=== PATIENT | female | born 1945 | race Caucasian/White ===

== ENCOUNTER → 2017-03-22 | Outpatient (CLI) | payer MEDICARE ==
[~2017-03-22] MED LIST: ACTO5TAB PO; ADVA250A INH; ASPI81CH CHEW; ATEN100T PO; BUPR150CR PO; CITA10TA4 PO; COLA750C2 PO; FLUT1INH INH; HYDR-3516 PO; NAPR550 PO; PERC10TA27 PO; PRIL20TA2 PO
[2017-03-22 12:36] LABS: AUTOMATED NEUTROPHIL # 5.1 TH/MM3 (1.8-7.7); BASOPHIL % 0.3 % (0.0-2.0); EOSINOPHIL # 0.1 TH/MM3 (0-0.4); EOSINOPHIL % 1.3 % (0.0-4.0); HEMATOCRIT 35.5 % (35.0-46.0); HEMO FLAGS DIFF FINAL; LYMPH % 35.1 % (9.0-44.0); LYMPHOCYTE # 3.3 TH/MM3 (1.0-4.8); MEAN CELL VOLUME 87.1 FL (80.0-100.0); MEAN CORPUSCULAR HEMOGLOBIN 28.1 PG (27.0-34.0); MEAN CORPUSCULAR HGB CONC 32.3 % (32.0-36.0); MONO % 8.1 % (0.0-8.0); NEUT % 55.2 % (16.0-70.0); PLATELET COUNT 264 TH/MM3 (150-450); RED BLOOD COUNT 4.08 MIL/MM3 (4.00-5.30); RED CELL DISTRIBUTION WIDTH 16.1 % (11.6-17.2); WHITE BLOOD COUNT 9.3 TH/MM3 (4.0-11.0)
[2017-03-22 12:41] LABS: BACTERIA, URINE RARE /hpf; BLOOD, URINE NEG (NEG); COMMENT (UR) CULT NOT INDICATED; CULTURE IF INDICATED CULT NOT INDICATED; GLUCOSE,URINE NEG (NEG); KETONE, URINE NEG (NEG); NITRITE,URINE NEG (NEG); SQUAMOUS EPITHELIAL CELL URINE <1 /hpf (0-5); URINE COLOR YELLOW (YELLW/STRAW)
[2017-03-22 12:44] LABS: APTT (PATIENT) 27.8 SEC (24.3-30.1); PROTHROMBIN TIME - PATIENT 11.2 SEC (9.8-11.6)
[2017-03-22 13:02] LABS: ANION GAP 5 MEQ/L (5-15); AST (GOT) 22 U/L (15-37); BICARBONATE 28.6 MEQ/L (21.0-32.0); BLOOD UREA NITROGEN 16 MG/DL (7-18); CHLORIDE 105 MEQ/L (98-107); GLOMERULAR FILTRATION RATE 56 ML/MIN (>89); GLUCOSE,FASTING 88 MG/DL (74-99); POTASSIUM 4.3 MEQ/L (3.5-5.1); SODIUM (NA) 139 MEQ/L (136-145)
[2017-03-22 13:03] LABS: ALT (GPT) 22 U/L (10-53)
[2017-03-22 13:05] LABS: ALKALINE PHOSPHATASE 119 U/L (45-117); TOTAL BILIRUBIN ADULT 0.3 MG/DL (0.2-1.0)
--- NOTE | 2017-03-22 13:09 | RADRPT ---
EXAM DATE/TIME: 03/22/2017 12:42 [place] COMPARISON: No previous studies available for comparison. INDICATIONS : Evaluate for Pneumonia, Pneumothorax, and Communicable Diseases. Pre-op Colectomy. MEDICAL HISTORY : Ulcerative colitis. SURGICAL HISTORY : Rotator cuff. ENCOUNTER: Initial ACUITY: 1 day PAIN SCORE: 0/10 LOCATION: Bilateral chest FINDINGS: PA and lateral views of the chest demonstrate the lungs to be symmetrically aerated without evidence of mass, infiltrate or effusion. The cardiomediastinal contours are unremarkable. Osseous structure s are intact. CONCLUSION: No acute cardiopulmonary disease. Rl Garcia MD on March 22, 2017 at 13:07 Board Certified Radiologist. This report was verified electronically.
--- NOTE | 2017-03-23 05:19 | EKG ---
Date Performed: 03/22/2017 Time Performed: 11:54:02 PTAGE: 71 years EKG: Sinus rhythm WITH FREQUENT ECTOPIC PREMATURE COMPLEXES SEPTAL MYOCARDIAL INFARCTION, PROBABLY OLD ABNORMAL ECG NO PREVIOUS TRACING DOCTOR: Xavier Booth Interpretating Date/Time 03/23/2017 05:14:17
== END ==
LOC: CPRE 11:27
PROVIDERS: ATTEND Colon & Rectal Surgery
DX: Z01.810 Encounter for preprocedural cardiovascular examination (principal); Z01.812 Encounter for preprocedural laboratory examination; K51.00 Ulcerative (chronic) pancolitis without complications; R94.31 Abnormal electrocardiogram [ECG] [EKG]
CPT/HCPCS: 36415; 71020; 80053; 81001; 85025; 85610; 85730; 93005

== ENCOUNTER 2017-03-29 06:25 | Inpatient (IN) | payer MEDICARE ==
[~2017-03-29] VITALS: Ht 166.6 cm; Wt 75.0 kg
[~2017-03-29 06:25] MED LIST changes: -HYDR-3516 PO
[2017-03-29] MEDS ORDERED: LACTATED RINGER'S 1000 ML IV PRN (06:45)
[2017-03-29] MEDS ORDERED: POVIDONE IODINE 5% (ANTISEPSIS KIT) 4 APPLICATIONS EACH NARE PRN (06:45)
[2017-03-29] MEDS ORDERED: METRONIDAZOLE 500 MG/100 ML ISONTONIC SOLN IV PRN (06:45)
[2017-03-29] MEDS ORDERED: DEXT 5%-NACL 0.9% 1000 ML INJ 1,000 ML IV SCH (06:45)
[2017-03-29] MEDS ORDERED: CHLORHEXIDINE GLUCONATE 2 % 1 PACK (2 CLOTHS) TOPICAL PRN (06:45)
[2017-03-29] MEDS ORDERED: SODIUM CHLORID 0.9% 500 ML IV PRN (06:45)
[2017-03-29] MEDS ORDERED: INSULIN HUMAN REGULAR 1,000 UNITS/10 ML VIAL SQ PRN (06:45)
[2017-03-29] MEDS ORDERED: METOPROLOL TARTRATE 25 MG TAB PO PRN (06:45)
[2017-03-29] MEDS ORDERED: FAMOTIDINE 20 MG/2 ML VIAL ONE (07:10)
[2017-03-29] MEDS ORDERED: ACETAMINOPHEN 1000 MG/100 ML 100 ML IV ONE (07:10)
[2017-03-29] MEDS ORDERED: SUGAMMADEX SODIUM 200 MG/2 ML VIAL IV PUSH ONE ×4 (08:14→16:32)
[2017-03-29] MEDS ORDERED: HYDROmorphone HCL PF 2 MG/ML VIAL ONE (09:18)
--- NOTE | 2017-03-29 09:38 | PD.OP ---
Operative Report Date of Surgery: Mar 29, 2017 Preoperative Diagnosis: Ulcerative colitis Postoperative Diagnosis: Same Procedure: Cystoscopy with bilateral ureteral catheter placement Anesthesia: SAMIA Surgeon: Trent Shine Timing Inspector(s): None Resident Surgeon: None Operation and Findings: 8 year-old female history of ulcerative colitis selected undergo robotic colectomy by Dr. Rodriguez today. Request for made for bilateral ureteral catheter placement. Patient was placed in dorsal lithotomy position and prepped and draped in usual sterile fashion. She received preprocedure antibiotics and general endotracheal tube anesthesia was administered. 22 [place] cystoscopy was inserted in the bladder dobbins cystoscopy did not reveal any abnormalities. 5 [place] open-ended ureteral catheter was placed on the left side without difficulty and then this was repeated on the right side without difficulty. A 16 [place] Natarajan catheter was then inserted she tolerated the procedure well. Trent Shine DO Mar 29, 2017 09:38
[2017-03-29] MEDS: ceFAZolin 2 GM PREMIX 50 ML IV SCH ×3 (11:37→11:41)
[2017-03-29] MEDS ORDERED: SODIUM CHLORID 0.9% 500 ML INJ 500 ML IV ONE (12:00)
[2017-03-29] MEDS ORDERED: ROCURONIUM INJ 50 MG/5 ML VIAL IV ONE (12:00)
[2017-03-29] MEDS ORDERED: KETOROLAC TROMETHAMINE 30 MG/ML (IVP) VIAL IV PUSH ONE (12:00)
[2017-03-29] MEDS ORDERED: DEXAMETHASONE SOD PHOS 4 MG/ML VIAL IV ONE (12:00)
[2017-03-29] MEDS ORDERED: ePHEDrine/NS 25 MG/5 ML SYR IV ONE (12:00)
[2017-03-29] MEDS ORDERED: MIDAZOLAM HCL 2 MG/2 ML VIAL IV ONE (12:00)
[2017-03-29] MEDS ORDERED: VECURONIUM BROMIDE 20 MG VIAL IV ONE (12:00)
[2017-03-29] MEDS ORDERED: LIDOCAINE HCL 1% PF 5 ML AMPULE OTHER ONE (12:00)
[2017-03-29] MEDS ORDERED: LABETALOL HCL 100 MG/20 ML VIAL IV ONE (12:00)
[2017-03-29] MEDS ORDERED: PROPOFOL 200 MG/20 ML AMP IV ONE (12:00)
[2017-03-29] MEDS ORDERED: NORMOSOL R INJ 1,000 ML IV ONE (12:00)
[2017-03-29] MEDS ORDERED: ONDANSETRON HCL 4 MG/2 ML VIAL IV PUSH ONE (12:00)
[2017-03-29] MEDS ORDERED: PHENYLEPH/NS 1000 MCG/10 ML SYR IV ONE (12:00)
[2017-03-29 13:09] LABS: BLOOD GAS BASE EXCESS -1.2 mmol/L (-2-2); BLOOD GAS CARBOXYHEMOGLOBIN 0.3 % (0-4); BLOOD GAS HCO3 26 mmol/L (22-26); BLOOD GAS O2 HGB SATURATION 97 % (90-100); BLOOD GAS OXYGEN CONTENT 14.8 Vol % (12.0-20.0); BLOOD GAS PCO2 65 mmHg (38-42); BLOOD GAS PO2 275 mmHg (61-120); BLOOD GAS TOTAL HGB 10.5 G/DL (12.0-16.0); TEMP CORR TO 98.6
[2017-03-29 13:10] LABS: CRITICAL VALUE YES; FIO2 50 %; OXYGEN DEVICE OR; STAT YES; ULNAR PULSE OR; VENT SETTINGS OR
[2017-03-29] MEDS ORDERED: ceFAZolin INJ 1,000 MG VIAL ONE (13:48)
[2017-03-29 14:39] LABS: BLOOD GAS BASE EXCESS -3.2 mmol/L (-2-2); BLOOD GAS CARBOXYHEMOGLOBIN 0.3 % (0-4); BLOOD GAS HCO3 23 mmol/L (22-26); BLOOD GAS METHEMOGLOBIN 1.1 % (0-2); BLOOD GAS O2 HGB SATURATION 96 % (90-100); BLOOD GAS OXYGEN CONTENT 15.7 Vol % (12.0-20.0); BLOOD GAS PCO2 56 mmHg (38-42); BLOOD GAS PO2 257 mmHg (61-120); BLOOD GAS TOTAL HGB 11.1 G/DL (12.0-16.0); TEMP CORR TO 98.6
[2017-03-29 14:40] LABS: CRITICAL VALUE YES; DRAW SITE ART LINE; OXYGEN DEVICE SEE OR; STAT YES
[2017-03-29] MEDS: D5-NS + KCL 20 MEQ INJ 1,000 ML IV SCH ×2 (16:43→23:39)
[2017-03-29] MEDS ORDERED: diphenhydrAMINE HCL 50 MG/ML VIAL IV PUSH PRN (16:45)
[2017-03-29] MEDS ORDERED: POTASSIUM CHLOR 20 MEQ PREMIX 100 ML IV PRN (16:45)
[2017-03-29] MEDS ORDERED: SODIUM CHLORIDE 0.9% FLUSH 5 ML FLUSH IVF PRN (16:45)
[2017-03-29] MEDS ORDERED: ACETAMINOPHEN 325 MG TAB PO PRN (16:45)
[2017-03-29] MEDS ORDERED: NALOXONE HCL 0.4 MG/ML AMP IV PUSH PRN (16:45)
[2017-03-29] MEDS ORDERED: POTASSIUM CHLOR 40 MEQ PREMIX 100 ML IV PRN (16:45)
[2017-03-29] MEDS ORDERED: ENALAPRILAT 2.5 MG/2 ML VIAL IV PUSH PRN (16:45)
[2017-03-29] MEDS ORDERED: BENZOCAINE 6 MG/MENTHOL 10 MG LOZENGE BUCCAL PRN (16:45)
[2017-03-29] MEDS ORDERED: ENALAPRILAT 1.25 MG/ML VIAL IV PUSH PRN (16:45)
[2017-03-29] MEDS ORDERED: ACETAMINOPHEN/HYDROcodone 325 MG/5 MG TAB PO PRN (16:45)
[2017-03-29] MEDS ORDERED: Post-op Orders (for Pharmacy) MISC XX ONE (16:45)
[2017-03-29] MEDS ORDERED: *RESP: ALBUTEROL 2.5 MG/3 ML NEB (PRN) PERIprocedural Use ONLY NEB ONE (17:00)
[2017-03-29] MEDS ORDERED: DO NOT ADM ANY ANTICOAGULANT DRUGS PRN (17:04)
[2017-03-29 17:40] LABS: AUTOMATED NEUTROPHIL # 14.4 TH/MM3 (1.8-7.7); BASOPHIL % 0.2 % (0.0-2.0); HEMATOCRIT 33.9 % (35.0-46.0); HEMO FLAGS DIFF FINAL; LYMPH % 4.1 % (9.0-44.0); LYMPHOCYTE # 0.7 TH/MM3 (1.0-4.8); MEAN CELL VOLUME 87.7 FL (80.0-100.0); MONO % 5.4 % (0.0-8.0); NEUT % 90.3 % (16.0-70.0); PLATELET COUNT 217 TH/MM3 (150-450); RED BLOOD COUNT 3.87 MIL/MM3 (4.00-5.30); RED CELL DISTRIBUTION WIDTH 15.9 % (11.6-17.2); WHITE BLOOD COUNT 15.9 TH/MM3 (4.0-11.0)
[2017-03-29 17:55] LABS: BICARBONATE 26.3 MEQ/L (21.0-32.0)
[2017-03-29] MEDS: MORPHINE SULFATE 30 MG/30 ML PCA IV SCH (17:56)
[2017-03-29] MEDS: metroNIDAZOLE 500 MG INJ 100 ML IV SCH (18:00)
[2017-03-29] MEDS: KETOROLAC TROMETHAMINE 30 MG/ML (IVP) VIAL IVP SCH ×2 (18:30→23:40)
[2017-03-29] MEDS ORDERED: *morphine SULFATE 8 MG/ML PERIprocedure ONLY ONE (19:17)
[2017-03-29 19:50] VITALS: BP 137/64; PULSE 76; RESP 16; TEMP 98.3; O2SAT 100
[2017-03-29 20:23] VITALS: PULSE 73
[2017-03-29 21:00] VITALS: PULSE 70
[2017-03-29] MEDS: SODIUM CHLORIDE 0.9% FLUSH 5 ML FLUSH IVF SCH (21:00)
[2017-03-29] MEDS: PCA - TOTAL MG MORPHINE DELIVERED PER SHIFT SCH (21:55)
[2017-03-29 22:00] VITALS: PULSE 74
[2017-03-29 23:00] VITALS: PULSE 69
[2017-03-29 23:20] VITALS: BP 110/55; PULSE 69; RESP 16; TEMP 97.8; O2SAT 100
[2017-03-30] VITALS (19 sets, daily range): BP systolic 106–119; BP diastolic 53–59; PULSE 68–99; RESP 16–20; TEMP 97.5–99.1; O2SAT 93–100
[2017-03-30] MEDS: metroNIDAZOLE 500 MG INJ 100 ML IV SCH ×2 (01:55→10:00)
[2017-03-30 04:49] LABS: AUTOMATED NEUTROPHIL # 10.8 TH/MM3 (1.8-7.7); BASOPHIL % 0.1 % (0.0-2.0); EOSINOPHIL % 0.1 % (0.0-4.0); HEMATOCRIT 31.3 % (35.0-46.0); HEMO FLAGS DIFF FINAL; LYMPH % 12.6 % (9.0-44.0); LYMPHOCYTE # 1.7 TH/MM3 (1.0-4.8); MEAN CELL VOLUME 88.9 FL (80.0-100.0); MEAN CORPUSCULAR HEMOGLOBIN 28.3 PG (27.0-34.0); MEAN CORPUSCULAR HGB CONC 31.9 % (32.0-36.0); MONO % 9.2 % (0.0-8.0); PLATELET COUNT 214 TH/MM3 (150-450); RED BLOOD COUNT 3.53 MIL/MM3 (4.00-5.30); RED CELL DISTRIBUTION WIDTH 16.1 % (11.6-17.2); WHITE BLOOD COUNT 13.8 TH/MM3 (4.0-11.0)
[2017-03-30 05:25] LABS: BICARBONATE 25.3 MEQ/L (21.0-32.0); POTASSIUM 4.4 MEQ/L (3.5-5.1)
[2017-03-30] MEDS: PCA - TOTAL MG MORPHINE DELIVERED PER SHIFT SCH ×3 (05:46→21:19)
[2017-03-30] MEDS: D5-NS + KCL 20 MEQ INJ 1,000 ML IV SCH ×3 (05:50→21:20)
[2017-03-30] MEDS: KETOROLAC TROMETHAMINE 30 MG/ML (IVP) VIAL IVP SCH ×3 (06:00→18:17)
[2017-03-30] MEDS ORDERED: SODIUM CHLOR 0.9% 1000 ML INJ 1,000 ML IV SCH (06:15)
[2017-03-30] MEDS ORDERED: D5-NS + KCL 20 MEQ INJ 1,000 ML IV SCH ×2 (06:30)
[2017-03-30] MEDS: FUROSEMIDE 20 MG/2 ML VIAL IV PUSH SCH ×2 (08:13→18:17)
[2017-03-30] MEDS: PANTOPRAZOLE SODIUM 40 MG VIAL IVP SCH (08:13)
[2017-03-30] MEDS: SODIUM CHLORIDE 0.9% FLUSH 5 ML FLUSH IVF SCH ×2 (08:14→21:00)
[2017-03-30] MEDS: HEPARIN SODIUM - SQ 10,000 UNITS/ML VIAL SQ SCH (16:24)
[2017-03-30] MEDS: ONDANSETRON HCL 4 MG/2 ML VIAL IV PUSH PRN (18:26)
[2017-03-31] VITALS (7 sets, daily range): BP systolic 108–148; BP diastolic 55–98; PULSE 89–105; RESP 16–20; TEMP 97.4–100.2; O2SAT 90–96
[2017-03-31] MEDS: KETOROLAC TROMETHAMINE 30 MG/ML (IVP) VIAL IVP SCH ×4 (01:13→17:32)
[2017-03-31] MEDS: HEPARIN SODIUM - SQ 10,000 UNITS/ML VIAL SQ SCH ×2 (03:58→16:04)
[2017-03-31] MEDS: D5-NS + KCL 20 MEQ INJ 1,000 ML IV SCH ×3 (03:59→12:31)
[2017-03-31] MEDS: PCA - TOTAL MG MORPHINE DELIVERED PER SHIFT SCH ×3 (06:00→22:00)
[2017-03-31] MEDS: FUROSEMIDE 20 MG/2 ML VIAL IV PUSH SCH ×2 (06:13→17:31)
[2017-03-31 06:57] LABS: AUTOMATED NEUTROPHIL # 10.3 TH/MM3 (1.8-7.7); BASOPHIL % 0.2 % (0.0-2.0); EOSINOPHIL # 0.1 TH/MM3 (0-0.4); EOSINOPHIL % 0.9 % (0.0-4.0); HEMATOCRIT 25.9 % (35.0-46.0); HEMO FLAGS DIFF FINAL; MEAN CELL VOLUME 88.7 FL (80.0-100.0); MEAN CORPUSCULAR HEMOGLOBIN 28.8 PG (27.0-34.0); MEAN CORPUSCULAR HGB CONC 32.5 % (32.0-36.0); MONO % 8.2 % (0.0-8.0); NEUT % 75.7 % (16.0-70.0); PLATELET COUNT 162 TH/MM3 (150-450); RED BLOOD COUNT 2.93 MIL/MM3 (4.00-5.30); RED CELL DISTRIBUTION WIDTH 16.2 % (11.6-17.2); WHITE BLOOD COUNT 13.6 TH/MM3 (4.0-11.0)
[2017-03-31 07:28] LABS: BICARBONATE 21.8 MEQ/L (21.0-32.0)
[2017-03-31] MEDS: SODIUM CHLORIDE 0.9% FLUSH 5 ML FLUSH IVF SCH ×2 (09:00→21:00)
[2017-03-31] MEDS: PANTOPRAZOLE SODIUM 40 MG VIAL IVP SCH (09:09)
[2017-03-31] MEDS: MORPHINE SULFATE 30 MG/30 ML PCA IV SCH (13:40)
[2017-03-31] MEDS: ONDANSETRON HCL 4 MG/2 ML VIAL IV PUSH PRN (15:56)
[2017-04-01] MEDS: KETOROLAC TROMETHAMINE 30 MG/ML (IVP) VIAL IVP SCH ×3 (00:28→13:07)
[2017-04-01] MEDS: D5-NS + KCL 20 MEQ INJ 1,000 ML IV SCH ×2 (00:29→13:07)
[2017-04-01 01:10] VITALS: BP 123/61; PULSE 89; RESP 16; TEMP 98.3; O2SAT 97
[2017-04-01] MEDS: HEPARIN SODIUM - SQ 10,000 UNITS/ML VIAL SQ SCH ×2 (03:05→17:13)
[2017-04-01 04:44] VITALS: BP 118/61; PULSE 91; RESP 16; TEMP 97.1; O2SAT 99
[2017-04-01] MEDS: FUROSEMIDE 20 MG/2 ML VIAL IV PUSH SCH ×2 (05:14→17:14)
[2017-04-01] MEDS: PCA - TOTAL MG MORPHINE DELIVERED PER SHIFT SCH ×2 (06:00→14:00)
[2017-04-01 07:46] LABS: AUTOMATED NEUTROPHIL # 8.6 TH/MM3 (1.8-7.7); BASOPHIL % 0.2 % (0.0-2.0); EOSINOPHIL # 0.3 TH/MM3 (0-0.4); EOSINOPHIL % 2.3 % (0.0-4.0); HEMATOCRIT 27.6 % (35.0-46.0); HEMO FLAGS DIFF FINAL; LYMPH % 14.6 % (9.0-44.0); LYMPHOCYTE # 1.7 TH/MM3 (1.0-4.8); MEAN CELL VOLUME 88.2 FL (80.0-100.0); MEAN CORPUSCULAR HEMOGLOBIN 28.3 PG (27.0-34.0); MEAN CORPUSCULAR HGB CONC 32.1 % (32.0-36.0); MONO % 8.3 % (0.0-8.0); NEUT % 74.6 % (16.0-70.0); PLATELET COUNT 189 TH/MM3 (150-450); RED BLOOD COUNT 3.13 MIL/MM3 (4.00-5.30); RED CELL DISTRIBUTION WIDTH 16.2 % (11.6-17.2); WHITE BLOOD COUNT 11.5 TH/MM3 (4.0-11.0)
[2017-04-01 08:00] VITALS: BP 157/63; PULSE 82; RESP 19; TEMP 96.9; O2SAT 99
[2017-04-01 08:06] LABS: BICARBONATE 25.5 MEQ/L (21.0-32.0); POTASSIUM 3.8 MEQ/L (3.5-5.1)
[2017-04-01] MEDS: SODIUM CHLORIDE 0.9% FLUSH 5 ML FLUSH IVF SCH ×2 (09:00→21:00)
[2017-04-01] MEDS: PANTOPRAZOLE SODIUM 40 MG VIAL IVP SCH (09:01)
[2017-04-01 12:00] VITALS: BP 144/66; PULSE 88; RESP 19; TEMP 98.7; O2SAT 95
--- NOTE | 2017-04-01 12:34 | MP ---
cc: YULIA RODRIGUEZ M.D., LAURA A. MD DATE OF SURGERY 03/29/17 PREOPERATIVE DIAGNOSIS 1. Chronic ulcerative colitis. 2. Hepatic flexure polyp with dysplasia. POSTOPERATIVE DIAGNOSIS 1. Chronic ulcerative colitis. 2. Hepatic flexure polyp with dysplasia. PROCEDURE Robotic total proctocolectomy with ileoanal pouch and diverting ileostomy SURGEON Dilma Rodriguez MD REBAR BENDER Tyson ANESTHESIA General per ET tube. ESTIMATED BLOOD LOSS 100 mL OPERATIVE INDICATIONS The patient is a 71-year-old female with a 20-year history of chronic ulcerative colitis and recent biopsy of a hepatic flexure polyp with dysplasia. OPERATIVE FINDINGS The colon showed no signs of acute inflammation but did have multiple signs of chronic inflammation including stove piping and thickening of the muscular wall throughout. The small bowel was healthy and normal and the liver and gallbladder were visibly and palpably normal. The uterus and left ovary were normal. The right ovary had a benign cyst but was otherwise unremarkable. PROCEDURE IN DETAIL The patient was brought to the operating room and placed in the supine position. After induction of general anesthesia, the patient was placed in Les stirrups and all bony prominences were carefully padded. The skin of the anterior abdominal wall as well as the perineum was then prepped and draped in the usual sterile fashion. Dr. Shine then came in and performed cystoscopy with placement of bilateral ureteral catheters. Please see his operative note for details. A site was then chosen for the camera being located just to the right and above the umbilicus. A 10-12 trocar was placed at this location under direct vision using the laparoscope. CO2 insufflation was then undertaken and nothing was noted that would preclude the robotic approach. The ports were then placed as follows. There was a 10-12 trocar placed just inside the right anterior superior iliac spine. We did place this a little more medial and cephalad in order to be able to use it on our right side as well our left dissection. A #5 assist port was placed in the right costal margin equal distance to the camera and the #1 port. The #3 port a long DaVinci was placed on the umbilical line and left anterior axillary line and the #2 port which was a short DaVinci was placed in the left mid clavicular line midway between the costal margin and the umbilical line. The patient was hydroplaned with head down and slightly to the right and the small bowel was brought up and out of the pelvis and to the right. The robot was then docked. The sigmoid colon was retracted down and to the left and the peritoneum on the right was scored. A dissection through this plane until the left ureter was clearly identified and swept away from the specimen. Dissection then continued posteriorly down to the level of the mid rectum. The lateral dissection was then continued around the right side. The lateral pelvic attachments in the sigmoid colon were then dissected free down to the level until our previous dissection was met. This dissection continued in the left gutter freeing the lateral side of the rectum. Dissection continued circumferentially around the rectum freeing the rectum anteriorly from the posterior vaginal wall and posteriorly down to the level of the pelvic floor. At this point, we elected to proceed with the remainder of the procedure. The descending colon fascia was gently dissected free from the underlying posterior peritoneum and laterally. The lateral attachments of the descending colon were dissected free using electrocautery. The omentum was then pulled away from the distal transverse colon used electrocautery dissection and was carried down into the lesser sac. This dissection was continued up and around the splenic flexure freeing the splenic flexure from its attachments. Eventually, we had full mobility of the distal half of the transverse colon, the descending colon and the sigmoid. The inferior hemorrhoidal vessels were dissected free circumferentially and a white load of the echelon Endo stapler was placed across the vessels at this level. This was closed, fired and removed. Using the vessel sealer, dissection then continued up the descending colon mesentery just inside the bowel and up and around the distal transverse mesentery up to but not including the middle colic vessels. At this point, the robot was undocked and redocked over the right shoulder. Because of the release of the colon, there was quite a bit of difficulty getting good retraction, but eventually we were able to dissect the lateral attachments of the descending colon. The lesser sac was then entered where we had had our previous dissection and continued over to the right until we had some mobility of the proximal transverse colon. A window was made around the middle colic vessels and a white load of the echelon reagent tender helper was placed across these vessels. This was closed for 30 seconds and removed. The remainder of the proximal transverse mesocolon and ascending colon mesocolon were then serially divided using the vessel sealer down to the level of the distal terminal ileum. A site was then chosen for division of the terminal ileum just proximal to the ileocecal valve. The mesentery at this level was divided using the vessel sealer and a blue load echelon endostapler was placed across the bowel at this level. The robot was then undocked. A total of 15 cm vertical incision was made to the pubic symphysis and proceeding intermediate to the umbilicus. Using electrocautery dissection, it was carried down to the fascia of the anterior abdominal wall which was split the length of the skin incision. A wound protector was then placed and the proximal stapled end of the bowel was grasped and pulled out through the incision. After prolapsing all the bowel, I felt that it would easier if we went ahead and stapled off just above the rectum to better visibility of the pelvis. This was accomplished using TX 60 stapling device area was divided and ligated using 0 Vicryl ties. At this point, the small bowel was packed up into the upper part of the abdomen and a contour stapler was placed across the rectum distally about 2 cm proximal to the anorectal ring. This was closed and fired. Because of the extreme tightness of her anal muscle, it was elected to proceed with a 21 EEA stapler. This was advanced through the rectal stump and came up nicely without tension. The bowel had a lot of extraneous tissue that needed to be cleaned. The small bowel was then brought and prolapsed out into the peritoneal cavity. A site was chosen which I felt would come down nicely into the pelvis to the very distal anastomosis without tension. This was approximately 20 cm proximal to the ileocecal valve. A distal 4-5 cm was w then divided and ligated using 0 Vicryl ties and stapled with the blue load. The apex of the pouch was then opened using electrocautery and the LAUREN stapler blue load was placed down one limb of the pouch and this was closed on border, fired and removed. A second load of the stapler was necessary to complete the length of the pouch. A pursestring was then placed around the open end of the pouch and anvil from the 21 EEA stapler was placed into the cut bowel and the previously placed pursestring suture was secured. A simple stay suture was placed in the distal end of the anastomosis after digital at the anus the 21 EEA stapler was advanced up to the rectal stump without difficulty. The spike was advanced just posterior to the staple line. The anvil was into the spike being careful twisted. The stapler was closed, held for 30 seconds, fired and removed thus creating anterior enterotomy and the enterotomy appeared pink and healthy circumferentially and lay without tension in a nice orientation. There was some question that one of the donuts was less than ideal, but a gentle digital exam was performed and the anastomosis was palpably normal and intact circumferentially. The peritoneal cavity was then copiously irrigated with warm normal saline. The fascia of the anterior abdominal wall at the suprapubic incision was closed in a running fashion using #1 PDS. The wound was copiously irrigated with warm normal saline. The skin was closed in a running subcuticular fashion using 3-0 Vicryl. A site was chosen for the stoma in the left lower quadrant and a site was chosen as far distal as possible that would come up nicely to the stoma site was chosen for the ileostomy. A 1.5 cm ellipse of skin was removed sharply and the preperitoneal fat was removed using electrocautery. A 1.5 cm incision in the anterior fascia was performed and the fibers of the rectus abdominis muscle were split. The posterior fascia was incised the length of the anterior incision. The previously planned loop of bowel was brought up and out through the stoma and lay nicely without tension. An Allis was placed through the loop to make sure that it did not mutate. After closure of the abdomen, CO2 insufflation was resumed with no sign of any significant abnormalities. The fascia at the 10-12 trocar was closed in using the crossbow closure device and 0 Vicryl suture and the stoma was matured in typical Ana fashion using 3-0 Vicryl. The remainder of the port sites were closed in an interrupted subcuticular fashion using 3-0 Vicryl. Steri-Strips and sterile dressings were then applied. All sponge, needle and instrument counts were correct. The patient was returned to the Post Anesthesia Care Unit stable. MD DEVORA Santoyo /4:50 PM /12:24 PM
[2017-04-01 16:00] VITALS: BP 166/73; PULSE 94; RESP 19; TEMP 99; O2SAT 96
--- NOTE | 2017-04-01 16:34 | HHI.PR ---
Subjective Remarks POD#3 s/p robotic TPC with IAP, diverting ileostomy Comfortable Objective Vital Signs Date Time Temp Pulse Resp B/P (MAP) Pulse Ox O2 Delivery O2 Flow Rate FiO2 04/01/17 16:00 99.0 94 19 166/73 (104) 96 04/01/17 14:18 18 04/01/17 14:00 18 04/01/17 12:00 98.7 88 19 144/66 (92) 95 04/01/17 08:00 96.9 82 19 157/63 (94) 99 04/01/17 06:00 18 04/01/17 04:44 97.1 91 16 118/61 (80) 99 04/01/17 03:00 Nasal Cannula 2.00 04/01/17 01:10 98.3 89 16 123/61 (81) 97 03/31/17 23:00 Nasal Cannula 2.00 03/31/17 22:00 16 03/31/17 20:00 98.8 105 16 136/63 (87) 92 03/31/17 20:00 Nasal Cannula 2.00 I/O 03/31/17 03/31/17 03/31/17 04/01/17 04/01/17 04/01/17 06:59 14:59 22:59 06:59 14:59 22:59 Intake Total 1440 ml 720 ml 1600 ml 120 ml Output Total 1025 ml 1400 ml 850 ml 1500 ml Balance 415 ml -1400 ml -130 ml 100 ml 120 ml Intake Oral 440 ml 720 ml 600 ml 120 ml IV Total 1000 ml 1000 ml Output Urine Total 850 ml 1400 ml 800 ml 1000 ml Stool Total 175 ml 50 ml 500 ml # Voids 3 # Bowel Movements 0 Result Diagram: 04/01/1744 04/01/1744 Objective Remarks Wounds clean Stoma pink Abdomen soft, nondistended, tender Assessment and Plan Assessment and Plan Advance diet Decrease IVF D/C 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
--- NOTE | 2017-04-01 16:38 | HHI.FF ---
Face to Face Verification Diagnosis: (1) Chronic ulcerative colitis Home Health Nursing Order: Wound care and dressing changes I have seen patient Lottie Hayes on 04/01/17. My clinical findings support the need for the requested home health care services because: Post-operative weakness, new stoma Deconditioned w/ increased weakness I certify that my clinical findings support that this patient is homebound because: Post-op weakness Unsafe to leave home unassisted Monika Rodriguez MD Apr 01, 2017 16:38
[2017-04-01 20:00] VITALS: BP 159/72; PULSE 103; RESP 18; TEMP 99.1; O2SAT 94
[2017-04-01] MEDS: ACETAMINOPHEN/HYDROcodone 325 MG/5 MG TAB PO PRN (20:27)
[2017-04-02] VITALS: BP 135/71; PULSE 91; RESP 18; TEMP 97.9; O2SAT 92
[2017-04-02] MEDS: HEPARIN SODIUM - SQ 10,000 UNITS/ML VIAL SQ SCH ×2 (04:18→18:31)
[2017-04-02] MEDS: ACETAMINOPHEN/HYDROcodone 325 MG/5 MG TAB PO PRN ×2 (04:18→10:06)
[2017-04-02 07:56] VITALS: BP 151/74; PULSE 80; RESP 19; TEMP 96.9; O2SAT 95
[2017-04-02] MEDS: SODIUM CHLORIDE 0.9% FLUSH 5 ML FLUSH IVF SCH ×2 (09:00→20:53)
[2017-04-02] MEDS: PANTOPRAZOLE SODIUM 40 MG VIAL IVP SCH (09:00)
[2017-04-02 12:00] VITALS: BP 158/77; PULSE 86; RESP 20; TEMP 97.7; O2SAT 96
--- NOTE | 2017-04-02 13:09 | HHI.PR ---
Subjective Remarks POD#4 s/p robotic TPC with IAP, diverting ileostomy Comfortable Objective Vital Signs Date Time Temp Pulse Resp B/P (MAP) Pulse Ox O2 Delivery O2 Flow Rate FiO2 04/02/17 12:00 97.7 86 20 158/77 (104) 96 04/02/17 11:52 18 04/02/17 07:56 96.9 80 19 151/74 (99) 95 04/02/17 00:00 97.9 91 18 135/71 (92) 92 04/01/17 20:00 99.1 103 18 159/72 (101) 94 04/01/17 16:00 99.0 94 19 166/73 (104) 96 04/01/17 14:18 18 04/01/17 14:00 18 I/O 04/01/17 04/01/17 04/01/17 04/02/17 04/02/17 04/02/17 07:00 15:00 23:00 07:00 15:00 23:00 Intake Total 1600 ml 120 ml 1200 ml 120 ml Output Total 1500 ml 900 ml 800 ml Balance 100 ml 120 ml 300 ml -800 ml 120 ml Intake Oral 600 ml 120 ml 1200 ml 120 ml IV Total 1000 ml Output Urine Total 1000 ml 900 ml 800 ml Stool Total 500 ml # Voids 3 # Bowel Movements 0 Result Diagram: 04/01/17 0644 04/01/17 06 Objective Remarks Wounds clean Stoma pink Abdomen soft, nondistended, tender Assessment and Plan Assessment and Plan Watch ileo output one additional day Home tomorrow Monika Rodriguez MD Apr 02, 2017 13:09
[2017-04-02] MEDS ORDERED: HYDR-3516 PO (13:10)
[2017-04-02 14:00] VITALS: BP 153/74; PULSE 103; RESP 20; TEMP 98.8; O2SAT 97
[2017-04-02] MEDS: ONDANSETRON HCL 4 MG/2 ML VIAL IV PUSH PRN (18:30)
[2017-04-02 20:53] VITALS: BP 171/79; PULSE 92; RESP 18; TEMP 98.9; O2SAT 96
[2017-04-03] VITALS: BP 173/74; PULSE 86; RESP 18; TEMP 98.4; O2SAT 95
[2017-04-03] MEDS ORDERED: ATENOLOL 100 MG TAB PO SCH ×3 (00:45→21:00)
[2017-04-03] MEDS: HEPARIN SODIUM - SQ 10,000 UNITS/ML VIAL SQ SCH (05:31)
[2017-04-03] MEDS: ONDANSETRON HCL 4 MG/2 ML VIAL IV PUSH PRN (05:33)
[2017-04-03 08:00] VITALS: BP 154/75; PULSE 74; RESP 20; TEMP 98.3; O2SAT 95
[2017-04-03] MEDS: SODIUM CHLORIDE 0.9% FLUSH 5 ML FLUSH IVF SCH (08:37)
[2017-04-03] MEDS: PANTOPRAZOLE SODIUM 40 MG VIAL IVP SCH (08:37)
--- NOTE | 2017-04-03 08:45 | HHI.PR ---
Subjective Remarks POD#5 s/p robotic TPC with IAP, diverting ileostomy Comfortable Objective Vital Signs Date Time Temp Pulse Resp B/P (MAP) Pulse Ox O2 Delivery O2 Flow Rate FiO2 04/03/17 08:00 98.3 74 20 154/75 (101) 95 04/03/17 00:00 98.4 86 18 173/74 (107) 95 04/02/17 20:53 98.9 92 18 171/79 (109) 96 04/02/17 19:45 18 04/02/17 19:00 95 Nasal Cannula 04/02/17 14:00 98.8 103 20 153/74 (100) 97 04/02/17 12:00 97.7 86 20 158/77 (104) 96 04/02/17 11:52 18 I/O 04/02/17 04/02/17 04/02/17 04/03/17 04/03/17 04/03/17 07:00 15:00 23:00 07:00 15:00 23:00 Intake Total 120 ml 960 ml 120 ml Output Total 800 ml 850 ml Balance -800 ml 120 ml 110 ml 120 ml Intake Oral 120 ml 960 ml 120 ml Output Urine Total 800 ml 850 ml Result Diagram: 04/01/17 0644 04/01/17 0644 Objective Remarks Wounds clean Stoma pink Abdomen soft, nondistended, tender Assessment and Plan Assessment and Plan Home today Followup 3 weeks Monika Rodriguez MD Apr 03, 2017 08:45
[2017-04-03] MEDS ORDERED: HYDR-3516 PO (08:49)
[2017-04-03] MEDS ORDERED: ASPIRIN 81 MG CHEW TAB CHEW SCH (09:00)
[2017-04-03] MEDS ORDERED: PANTOPRAZOLE SOD 20 MG DELAYED RELEASE TAB PO SCH (09:00)
[2017-04-03] MEDS ORDERED: FLUTICASONE 100 MCG/VILANTEROL 25 MCG INHALER INH SCH (09:00)
[2017-04-03] MEDS ORDERED: buPROPion HCL 150 MG SUSTAINED RELEASE TAB PO SCH (09:00)
[2017-04-03] MEDS ORDERED: ACETAMINOPHEN/HYDROcodone 325 MG/5 MG TAB PO PRN (09:00)
--- NOTE | 2017-04-03 09:21 | MD ---
cc: YULIA NUNEZ M.D. ADMISSION DATE: 03/29/2017 DISCHARGE DATE: 04/03/2017 [place] Visit Search.Discharge Date ADMISSION DIAGNOSES 1. Chronic ulcerative colitis. 2. Hypertension. DISCHARGE DIAGNOSES 1. Chronic ulcerative colitis. 2. Hypertension. PROCEDURES 1. Cystoscopy with placement of bilateral ureteral catheters. 2. Robotic total proctocolectomy with ileoanal pouch and diverting ileostomy. HOSPITAL COURSE The patient is a 71-year-old female with a 20-year history of chronic ulcerative colitis and recent biopsy of a hepatic flexure polyp dysplasia. She was admitted to the hospital after an outpatient bowel prep at which time she underwent the above-named procedures. Postoperatively she did well with rapid return of bowel and bladder function. She was discharged home on postoperative day #5 with home health care and instructions to follow up with myself in the office. Final pathology showed chronic ulcerative colitis with a polyp and no signs of any cancer. MD AMBER Santoyo/JOSE /8:43 AM /9:08 AM
== END 2017-04-03 11:38 | disposition home or self-care (01) | DRG 331 ==
LOC: HSDI 06:25 → HCPC 20:05 → N07B 03-30 15:41
PROVIDERS: ADMIT Colon & Rectal Surgery; ATTEND Colon & Rectal Surgery
PROC: 0D1B0Z4 Bypass Ileum to Cutaneous, Open Approach (ICD-10-PCS; 2017-03-29)
PROC: 0D1B4ZQ Bypass Ileum to Anus, Percutaneous Endoscopic Approach (ICD-10-PCS; 2017-03-29)
PROC: 0TJB8ZZ Inspection of Bladder, Via Natural or Artificial Opening Endoscopic (ICD-10-PCS; 2017-03-29)
PROC: 0T9880Z Drainage of Bilateral Ureters with Drainage Device, Via Natural or Artificial Opening Endoscopic (ICD-10-PCS; 2017-03-29)
PROC: 0DTE4ZZ Resection of Large Intestine, Percutaneous Endoscopic Approach (ICD-10-PCS; principal; 2017-03-29 08:40)
PROC: 0DBP4ZZ Excision of Rectum, Percutaneous Endoscopic Approach (ICD-10-PCS; 2017-03-29 08:40)
DX: K51.90 Ulcerative colitis, unspecified, without complications (principal); D64.9 Anemia, unspecified; I10 Essential (primary) hypertension; D12.3 Benign neoplasm of transverse colon; J45.909 Unspecified asthma, uncomplicated; K21.9 Gastro-esophageal reflux disease without esophagitis
CPT/HCPCS: 80048; 82805; 85025; 86850; 86900; 86901; 88307; 88309; 94150; C1765; C9113; J0131; J0690; J1100; J1170; J1644; J1885; J1940; J2250; J2270; J2370; J2405; J3010; J3480; J7030; J7040; J7120; J7613

== ENCOUNTER 2017-04-16 14:21 | Observation (INO) | payer MEDICARE ==
[~2017-04-16] VITALS: Ht 167.6 cm; Wt 63.2 kg
[2017-04-16 06:00] VITALS: BP 112/60; PULSE 81; RESP 18; TEMP 100; O2SAT 97
[~2017-04-16 14:21] MED LIST changes: -ACTO5TAB PO; -ADVA250A INH; -CITA10TA4 PO; +CLOT10TR PO; -COLA750C2 PO; +HYDR-3516 PO; -NAPR550 PO; -PERC10TA27 PO; +ZOFR4TAB3 SL
[2017-04-16 14:35] VITALS: BP 115/56; PULSE 89; RESP 17; TEMP 99.2
--- NOTE | 2017-04-16 14:56 | PD ---
HPI Chief Complaint: Oral / Dental Pain or Problem Time Seen by Provider: 14:33 Travel History International Travel<30 days: No Contact w/Intl Traveler<30days: No Traveled to known affect area: No History of Present Illness HPI This 71-year-old female presents with complaint of pain in her mouth and trouble swallowing. She had surgery with Dr. Rodriguez on March 29. She had total colectomy done. She has long history of ulcerative colitis. She had an ileoanal conduit and diverting ileostomy at that time. She says his stomach is not hurting her. She was seen in the emergency department on 1028 with complaint of pain in her throat and trouble swallowing. At that time noted that her tongue was red and it was thought that this was most likely Lawanda stomatitis. Is given prescription for clotrimazole troches. She has been using these but there is been no response. She says when she tries to swallow is painful. She has not been eating well. She says she's had a 20 pound weight loss is month. She does take medications for high blood pressure. She feels like the pain in her mouth is getting worse. His not having abdominal pain. She is not coughing PFSH Past Medical History Asthma: Yes Cancer: No (pending biopsy report colon 03/29/17) Cardiovascular Problems: No Diabetes: No Diminished Hearing: No Endocrine: No Gastrointestinal Disorders: Yes Genitourinary: No Hepatitis: No Hiatal Hernia: No Hypertension: Yes Immune Disorder: No Musculoskeletal: No Neurologic: No Psychiatric: No Reproductive: No Respiratory: Yes (ASTHMA) Sleep Apnea: No Thyroid Disease: No ?: Not Menopausal: Yes Past Surgical History Abdominal Surgery: Yes (total protocolectomy with diverting ileostomy mar 2017) Cardiac Surgery: No Ear Surgery: No Eye Surgery: Yes (BILATERAL CATERACTS both) Genitourinary Surgery: No Gynecologic Surgery: No Joint Replacement: No Pacemaker: No Thoracic Surgery: No Other Surgery: Yes (colectomy for ulcerative colitis) Social History Alcohol Use: No Tobacco Use: No (quit in 1974 5 cigs a day) Substance Use: No Allergies-Medications (Allergen,Severity, Reaction): Coded Allergies: No Known Allergies (Verified Adverse Reaction, Unknown, 04/16/17) Reported Meds & Prescriptions Reported Meds & Active Scripts Active Zofran Odt (Ondansetron Odt) 4 Mg Tab 4 Mg SL Q6HR PRN Clotrimazole Irais (Clotrimazole) 10 Mg Troc 10 Mg PO 5 TIMES A DAY 10 Days Hydrocodone-Acetaminophen 5-325 mg Tab 1-2 Tab PO Q6H PRN 10 Days Hydrocodone-Acetaminophen 5-325 mg Tab 1-2 Tab PO Q6H PRN 10 Days Reported Atenolol Unknown Strength Tab Unknown Dose PO DAILY Aspirin 81 Mg Chew 81 Mg CHEW DAILY Wellbutrin SR 12 HR (Bupropion HCl) 150 Mg Tab 150 Mg PO DAILY Prilosec (Omeprazole Magnesium) 20 Mg Tab 20 Mg PO DAILY Breo Ellipta Inh (Fluticasone/Vilanterol) 100-25 Mcg/Act Inh 1 Puff INH DAILY Use daily at the same time. Review of Systems General / Constitutional: No: Fever, Chills Eyes: No: Diploplia, Blurred Vision HENT: Positive: Other (mouth pain), No: Headaches Cardiovascular: No: Chest Pain or Discomfort Respiratory: No: Cough Gastrointestinal: No: Nausea, Vomiting Genitourinary: No: Urgency, Frequency Musculoskeletal: No: Myalgias Skin: No Rash Neurologic: Positive: Weakness, Dizziness Psychiatric: No: Anxiety Endocrine: No: Heat Intolerance Hematologic/Lymphatic: No: Easy Bruising Physical Exam Narrative Thin female SKIN: Focused skin assessment warm/dry. HEAD: Atraumatic. Normocephalic. EYES: Pupils equal and round. No scleral icterus. No injection or drainage. ENT: No nasal bleeding or discharge. Mucous membranes dry NECK: Trachea midline. No JVD. CARDIOVASCULAR: Regular rate and rhythm. No murmur appreciated. RESPIRATORY: No accessory muscle use. Clear to auscultation. Breath sounds equal bilaterally. GASTROINTESTINAL: Abdomen soft, non-tender, nondistended. Hepatic and splenic margins not palpable. There is an ileostomy present MUSCULOSKELETAL: No obvious deformities. No clubbing. No cyanosis. No edema. NEUROLOGICAL: Awake and alert. No obvious cranial nerve deficits. Motor grossly within normal limits. Normal speech. PSYCHIATRIC: Appropriate mood and affect; insight and judgment normal. Data Data Last Documented VS Vital Signs Date Time Temp Pulse Resp B/P (MAP) Pulse Ox O2 Delivery O2 Flow Rate FiO2 04/16/17 16:00 100 16 110/56 (74) 97 Room Air 04/16/17 14:35 99.2 Orders Orders Complete Blood Count With Diff (04/16/17 14:50) Comprehensive Metabolic Panel (04/16/17 14:50) Urinalysis - C+S If Indicated (04/16/17 14:50) Sodium Chlor 0.9% 1000 Ml Inj (Ns 1000 M (04/16/17 15:00) Vitamin B12 (04/16/17 14:50) Folate, Serum (04/16/17 14:50) Orthostatic Vital Signs (04/16/17 14:56) Labs Laboratory Tests Test 04/16/17 15:04 White Blood Count 18.8 TH/MM3 Red Blood Count 3.86 MIL/MM3 Hemoglobin 10.4 GM/DL Hematocrit 32.4 % Mean Corpuscular Volume 83.9 FL Mean Corpuscular Hemoglobin 27.0 PG Mean Corpuscular Hemoglobin Concent 32.2 % Red Cell Distribution Width 14.9 % Platelet Count 745 TH/MM3 Mean Platelet Volume 9.2 FL Neutrophils (%) (Auto) 67.3 % Lymphocytes (%) (Auto) 18.4 % Monocytes (%) (Auto) 10.7 % Eosinophils (%) (Auto) 0.6 % Basophils (%) (Auto) 3.0 % Neutrophils # (Auto) 12.6 TH/MM3 Lymphocytes # (Auto) 3.5 TH/MM3 Monocytes # (Auto) 2.0 TH/MM3 Eosinophils # (Auto) 0.1 TH/MM3 Basophils # (Auto) 0.6 TH/MM3 CBC Comment AUTO DIFF Differential Comment AUTO DIFF CONFIRMED Platelet Estimate HIGH Platelet Morphology Comment ENLARGED Urine Collection Type CLEAN CATCH Urine Color YELLOW Urine Turbidity CLEAR Urine pH 5.5 Urine Specific [place] 1.025 Urine Protein 30 mg/dL Urine Glucose (UA) NEG mg/dL Urine Ketones NEG mg/dL Urine Occult Blood NEG Urine Nitrite NEG Urine Bilirubin NEG Urine Leukocyte Esterase NEG Urine WBC 0-2 /hpf Urine Amorphous Sediment FEW Urine Hyaline Casts 3-5 /lpf Urine Mucus FEW /lpf Microscopic Urinalysis Comment CULT NOT INDICATED Urine Collection Time 15:04 Blood Urea Nitrogen 23 MG/DL Creatinine 1.30 MG/DL Random Glucose 112 MG/DL Total Protein 8.2 GM/DL Albumin 2.8 GM/DL Calcium Level 9.4 MG/DL Alkaline Phosphatase 170 U/L Aspartate Amino Transf (AST/SGOT) 33 U/L Alanine Aminotransferase (ALT/SGPT) 33 U/L Total Bilirubin 0.4 MG/DL Sodium Level 132 MEQ/L Potassium Level 4.2 MEQ/L Chloride Level 96 MEQ/L Carbon Dioxide Level 26.1 MEQ/L Anion Gap 10 MEQ/L Estimat Glomerular Filtration Rate 40 ML/MIN [facility] Medical Decision Making Medical Screen Exam Complete: Yes Emergency Medical Condition: Yes Medical Record Reviewed: Yes Differential Diagnosis Differential includes stomatitis, esophagitis, dehydration Narrative Course Urine is 23 with creatinine of 1.3. Her hemoglobin is 10.4 today white count is 18,000. He did check orthostatic vital signs and when she stood her blood pressure went to 84/38 and she gets lightheaded and dizzy. Patient was here for similar complaints 3 days ago and has not responded to medication at all. I think she does require admission for IV hydration and evaluation for possible esophagitis Diagnosis Primary Impression: Dehydration Additional Impressions: Esophagitis Stomatitis Admitting Information Admitting Physician Requests: Observation Jason Lee MD Apr 16, 2017 14:56
[2017-04-16] MEDS ORDERED: SODIUM CHLOR 0.9% 1000 ML INJ 1,000 ML IV ONE ×2 (15:00)
[2017-04-16 15:10] VITALS: BP_SYST 106; BP_SYST 84; BP_SYST 98; BP_DIAS 39; BP_DIAS 52; BP_DIAS 59
[2017-04-16 15:10] LABS: BILIRUBIN, URINE NEG (NEG); BLOOD, URINE NEG (NEG); GLUCOSE,URINE NEG (NEG); KETONE, URINE NEG (NEG); NITRITE,URINE NEG (NEG); PH, URINE 5.5 (5.0-8.5); URINE LEUKOCYTE ESTERASE NEG (NEG)
[2017-04-16 15:11] LABS: URINE COLOR YELLOW (YELLW/STRAW)
[2017-04-16 15:14] LABS: AMORPHOUS SEDIMENT, URINE FEW; MUCUS URINE FEW /lpf (OCC); WBC, URINE 0-2 /hpf (0-5)
[2017-04-16 15:19] LABS: CHLORIDE 96 MEQ/L (98-107); SODIUM (NA) 132 MEQ/L (136-145)
[2017-04-16 15:21] LABS: AUTOMATED NEUTROPHIL # 12.6 TH/MM3 (1.8-7.7); BASOPHIL # 0.6 TH/MM3 (0-0.2); EOSINOPHIL # 0.1 TH/MM3 (0-0.4); EOSINOPHIL % 0.6 % (0.0-4.0); HEMATOCRIT 32.4 % (35.0-46.0); HEMOGLOBIN 10.4 GM/DL (11.6-15.3); LYMPH % 18.4 % (9.0-44.0); LYMPHOCYTE # 3.5 TH/MM3 (1.0-4.8); MEAN CELL VOLUME 83.9 FL (80.0-100.0); MEAN CORPUSCULAR HGB CONC 32.2 % (32.0-36.0); MEAN PLATELET VOLUME 9.2 FL (7.0-11.0); MONO % 10.7 % (0.0-8.0); NEUT % 67.3 % (16.0-70.0); PLATELET COUNT 745 TH/MM3 (150-450); RED BLOOD COUNT 3.86 MIL/MM3 (4.00-5.30); RED CELL DISTRIBUTION WIDTH 14.9 % (11.6-17.2); WHITE BLOOD COUNT 18.8 TH/MM3 (4.0-11.0)
[2017-04-16 15:22] LABS: CALCIUM 9.4 MG/DL (8.5-10.1)
[2017-04-16 15:23] LABS: ALBUMIN 2.8 GM/DL (3.4-5.0); BICARBONATE 26.1 MEQ/L (21.0-32.0); BLOOD UREA NITROGEN 23 MG/DL (7-18); GLUCOSE,RANDOM 112 MG/DL (74-106)
[2017-04-16 15:26] LABS: ALT (GPT) 33 U/L (10-53); AST (GOT) 33 U/L (15-37); GLOMERULAR FILTRATION RATE 40 ML/MIN (>89)
[2017-04-16 15:28] LABS: TOTAL BILIRUBIN ADULT 0.4 MG/DL (0.2-1.0); TOTAL PROTEIN 8.2 GM/DL (6.4-8.2)
[2017-04-16 15:29] LABS: ALKALINE PHOSPHATASE 170 U/L (45-117)
[2017-04-16 16:00] VITALS: BP 110/56; PULSE 100; RESP 16; O2SAT 97
[2017-04-16 16:58] VITALS: BP 96/56; PULSE 84; RESP 17; TEMP 99.2; O2SAT 96
[2017-04-16] MEDS ORDERED: FLUCONAZOLE 100 MG TAB PO ONE ×2 (17:45)
[2017-04-16] MEDS ORDERED: ENOXAPARIN SODIUM 30 MG/0.3 ML SYRINGE SQ SCH ×2 (18:00)
[2017-04-16] MEDS: CLOTRIMAZOLE 10 MG TROCHE BUCCAL SCH ×4 (18:16→22:12)
[2017-04-16] MEDS: CHLORHEXIDINE GLUCONATE 0.12% 15 ML CUP SWISH-SPIT SCH ×2 (18:17)
[2017-04-16] MEDS: SODIUM CHLOR 0.9% 1000 ML INJ 1,000 ML IV SCH ×2 (18:17)
[2017-04-16] MEDS ORDERED: PILL SPLITTER OTHER PRN ×2 (18:30)
[2017-04-16 18:51] LABS: FOLATE GREATER THAN 20.0 NG/ML (3.1-17.5)
--- NOTE | 2017-04-16 18:54 | MH ---
cc: GLORIA ESTEBAN M.D. DATE OF ADMISSION 04/16/2017 DATE OF 1945 ADMISSION DIAGNOSIS 1. Dehydration due to poor oral intake. 2. Oral stomatitis and angular cheilitis possible secondary to thrush. 3. Pain on swallowing. 4. Leukocytosis. 5. Minimal hyponatremia. 6. Hypoalbuminemia. 7. Recent robotic assisted laparoscopic total proctocolectomy with ileoanal pouch diverting ileostomy on 03/29/2017. 8. Asthma. 9. Hypertension. 10. Gastroesophageal reflux disease. 11. Stage III chronic kidney disease. 12. Major depression in partial remission. 13. Osteopenia. 14. Thrombocytosis. 15. History of ulcerative colitis as the cause of recent colectomy. 16. History of colon polyps with a recent tubular adenoma with superficial high-grade dysplasia on 11/2016. 17. Atherosclerosis of the aorta. PERTINENT HISTORY This is a 71-year-old white female who underwent robotic-assisted laparoscopic total proctocolectomy with ileoanal pouch diverting ileostomy on 03/29/2017 because of ulcerative colitis and a polyp with high-grade dysplasia. She has had a long history of ulcerative colitis for over 20 years and because of recurrent polyps and recent abnormal polyp it was thought it best to just go ahead and remove her colon. She seemed to be recovering well from that and really has not had any significant abdominal pain or lower GI symptoms and her ileostomy has been working well. However, about on the Saturday evening, the , she started developing a red and sore tongue. Her lips were irritated and red and with cracking om the corners of the mouth and lips. She was having trouble swallowing due to discomfort. It worsened, she went to the emergency room at [place] on 04/14 and was treated for possible thrush with Mycelex Irais tablets lozenges to suck on five times a day. She has not been eating as much and drinking as much because of the mouth irritation and pain. She went to her primary care physician today, who thought she was dehydrated with her blood pressure low. She was not feeling any better with her mouth so she was sent to the ER where her BUN and creatinine have gone up some indicating likely dehydration. Her white blood cell counts which was 16.5 on 04/14 has gone up to 18.8. Her platelet counts have been in the 700,000, was 734,000 on 04/14, 745,000 today. She has had 67% neutrophils and 18% lymphocytes and 10.7% monocytes on her CBC. Her BUN has risen from 15-23 in the last 2 days with her creatinine going from 1.2 to 1.3. Her sodium was 132. Her albumin has been a little low. Repeat B12 and folate are pending. She is admitted for IV fluids and treatment for possible oral thrush, more intensive. She documented fever and denies any chills or sweats. She just she actually has no trouble with her food passing down her esophagus or getting stuck. It is sore in the neck and throat when she swallows. MEDICAL HISTORY She has hypertension. She has a long history of ulcerative colitis as mentioned. She has had moderate left carotid artery stenosis on prior imaging. She has atherosclerosis of the aorta. She has had colon polyps removed and had the tubular adenoma with superficial high-grade dysplasia on 11/2016. Her colonoscopy then showed pancolitis. She has osteopenia. Has been treated for major depression for quite awhile and has had some anxiety as well. She has history of hemangioma of the liver. She has history of gastroesophageal reflux disease, asthma. She denies any heart disease, diabetes, COPD, emphysema. She states she had duodenal ulcer several years ago, has had no cancer, stroke or seizures. PAST SURGICAL HISTORY She has had some hammertoe surgery on at least two toes and another foot surgery over the years. She has had arthroscopic left rotator cuff repair. She had the recent robotic laparoscopic total proctocolectomy with ileoanal pouch diverting ileostomy on 03/29/2017. Colonoscopy 11/2016 showed pancolitis and the tubular adenoma with superficial high-grade dysplasia. ALLERGIES None. MEDICATIONS 1. She is on atenolol 100 milligrams daily. 2. Omeprazole 20 milligrams a day. 3. Wellbutrin SR 150 milligrams a day. 4. Breo Ellipta 100-25 one inhalation daily. 5. Aspirin 81 milligrams a day. 6. Fish oil 1000 milligrams a day. 7. Citalopram 10 milligrams a day. 8. Lorazepam 0.5 milligrams b.i.d. only as needed. 9. She uses Ocuvite for one a day. 10. Ventolin inhaler p.r.n. FAMILY HISTORY Father at 78. He had liver cancer and lung cancer. She does not know whether the primary was in the lung or the liver. He also had history of coronary artery bypass grafting. Mother recently of Alzheimer's dementia. She was 88. SOCIAL HISTORY She is . She does not use alcohol, is retired. 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 She only smoked maybe 3-1/2 years of her life but quit in 1974. REVIEW OF SYSTEMS GENERAL: Denies any fever, chills. HEENT: No nasal symptoms or hearing complaints. She has had the mouth soreness and tongue soreness and redness and some cracking around her corners of her mouth as mentioned. PULMONARY: Just only a slight dry cough occasionally, more as if she is trying to clear something in the back of her throat. She has no shortness of breath or wheezing. CARDIOVASCULAR: No chest pain, palpitations. GI: No current heartburn, indigestion, no abdominal pain. Apparently, her ileostomy is functioning well. No bleeding noted. : No dysuria, hematuria. SKIN: Without rash. MUSCULOSKELETAL: Without complaints. NEURO: Without headaches or weakness or numbness. PHYSICAL EXAMINATION GENERAL: Pleasant white female in no significant distress. VITAL SIGNS: She has been afebrile. Temperature 99.2, pulse 89, respirations 16, BP range from 96/56 to 115/58. She did have some orthostatic drop in her blood pressure with a supine 106/52, sitting 98/59, standing 84/39. HEENT: TMs clear. Nose negative. Mouth, her tongue is red and there is some little white patches on parts of the tongue. There seems to be a little redness of the buccal mucosa. Her inner lips are red and irritated and she has some angular irritation around the mouth with some cracking in the skin. NECK: Without adenopathy. No JVD, maybe minimal left carotid bruits. HEART: Regular rate and rhythm. No murmur. LUNGS: Clear. ABDOMEN: Soft. She has an ileostomy in the left lower quadrant, no tenderness of the abdomen. EXTREMITIES: No edema. Pulses symmetrical. NEURO: Oriented x3. Cranial nerves intact. LABORATORY As mentioned her white count was 18.8, hemoglobin was 10.4 and stable. Her platelet count was 745,000, sodium 132, potassium 4.2, BUN 23, creatinine 1.3, GFR 40, random glucose 112. AST, ALT normal. Alkaline phosphatase a little high at 170. Albumin low at 2.8, total protein 8.2. B12, folate pending. Urinalysis was negative. ASSESSMENT As noted. PLAN Will continue her on the Mycelex Irais lozenges to use in the mouth. I will add some fluconazole 100 milligrams daily since she does complain of some symptoms further down in the back of her throat, in case she could have some amelia in her upper esophagus. Will give her IV fluids with normal saline tonight. Will recheck her CBC and BMP tomorrow. We are just going to put her on Lovenox 30 milligrams subcu daily for DVT prophylaxis. I will give her some nystatin triamcinolone ointment to apply to her lips and at the corners of her mouth to help with the irritation there. Will hold her atenolol for now since her blood pressure is a little low. MD NORBERTO Black/ANNI /5:52 PM /6:18 PM
[2017-04-16 20:00] VITALS: BP 99/50; PULSE 82; RESP 16; TEMP 98.3; O2SAT 99
[2017-04-16] MEDS: NYSTATIN/TRIAMCINOLONE OINT 15 GM TUBE TOPICAL SCH ×2 (22:09)
[2017-04-17] VITALS: BP 118/56; PULSE 84; RESP 16; TEMP 98.3; O2SAT 99
[2017-04-17] MEDS: SODIUM CHLOR 0.9% 1000 ML INJ 1,000 ML IV SCH ×4 (03:36→08:02)
[2017-04-17] MEDS: CLOTRIMAZOLE 10 MG TROCHE BUCCAL SCH ×4 (05:54→11:54)
[2017-04-17 06:26] LABS: AUTOMATED NEUTROPHIL # 8.9 TH/MM3 (1.8-7.7); BASOPHIL % 0.3 % (0.0-2.0); EOSINOPHIL # 0.1 TH/MM3 (0-0.4); HEMATOCRIT 27.3 % (35.0-46.0); HEMOGLOBIN 8.9 GM/DL (11.6-15.3); LYMPH % 20.7 % (9.0-44.0); LYMPHOCYTE # 2.7 TH/MM3 (1.0-4.8); MEAN CELL VOLUME 85.1 FL (80.0-100.0); MEAN CORPUSCULAR HEMOGLOBIN 27.7 PG (27.0-34.0); MEAN CORPUSCULAR HGB CONC 32.6 % (32.0-36.0); MEAN PLATELET VOLUME 9.3 FL (7.0-11.0); MONO % 11.2 % (0.0-8.0); MONOCYTE # 1.5 TH/MM3 (0-0.9); NEUT % 66.8 % (16.0-70.0); PLATELET COUNT 573 TH/MM3 (150-450); RED BLOOD COUNT 3.21 MIL/MM3 (4.00-5.30); RED CELL DISTRIBUTION WIDTH 15.2 % (11.6-17.2); WHITE BLOOD COUNT 13.2 TH/MM3 (4.0-11.0)
[2017-04-17 06:53] LABS: BICARBONATE 24.8 MEQ/L (21.0-32.0); CALCIUM 8.3 MG/DL (8.5-10.1); CREATININE 0.99 MG/DL (0.50-1.00)
[2017-04-17 07:50] VITALS: BP 123/57; PULSE 85; RESP 20; TEMP 97.6; O2SAT 100
[2017-04-17] MEDS: NYSTATIN/TRIAMCINOLONE OINT 15 GM TUBE TOPICAL SCH ×2 (08:02)
[2017-04-17] MEDS: CHLORHEXIDINE GLUCONATE 0.12% 15 ML CUP SWISH-SPIT SCH ×4 (08:02→11:54)
[2017-04-17] MEDS ORDERED: FLUTICASONE 100 MCG/VILANTEROL 25 MCG INHALER INH SCH ×2 (09:00)
[2017-04-17] MEDS ORDERED: ASPIRIN 81 MG CHEW TAB CHEW SCH ×2 (09:00)
[2017-04-17] MEDS ORDERED: buPROPion HCL 150 MG SUSTAINED RELEASE TAB PO SCH ×2 (09:00)
[2017-04-17] MEDS ORDERED: CITALOPRAM HYDROBROMIDE 20 MG TAB PO SCH ×2 (09:00)
[2017-04-17] MEDS ORDERED: PANTOPRAZOLE SOD 20 MG DELAYED RELEASE TAB PO SCH ×2 (09:00)
[2017-04-17 11:50] VITALS: BP 127/60; PULSE 81; RESP 20; TEMP 99.1; O2SAT 100
[2017-04-17] MEDS ORDERED: FLUC100T2 PO ×2 (13:37)
[2017-04-17] MEDS ORDERED: NYST1OIN TOPICAL ×2 (13:37)
[2017-04-17] MEDS ORDERED: CELE20TA PO ×2 (13:37)
[2017-04-17] MEDS ORDERED: CHLO.12%30 SWISH-SPIT ×2 (13:37)
--- NOTE | 2017-04-17 14:18 | HHI.PR ---
Subjective Remarks Patient states she feels much better today. Her mouth and lips are not near as sore today. The ointment has helped with her lips also. She feels much stronger after the IV fluids for her dehydration. She has been eating better and drinking fluids easier today. She feels like she can go home and followup with Dr Ashraf. Objective Vitals Vital Signs Date Time Temp Pulse Resp B/P (MAP) Pulse Ox O2 Delivery O2 Flow Rate FiO2 04/17/17 11:50 99.1 81 20 127/60 (82) 100 04/17/17 07:50 97.6 85 20 123/57 (79) 100 04/17/17 00:00 98.3 84 16 118/56 (76) 99 04/16/17 20:00 98.3 82 16 99/50 (66) 99 04/16/17 16:58 99.2 84 17 96/56 (69) 96 Room Air 04/16/17 16:00 100 16 110/56 (74) 97 Room Air 04/16/17 15:10 91 106/52 (70) 87 98/59 (72) 96 84/39 (54) 04/16/17 14:35 99.2 89 17 115/56 (75) Result Diagram: 04/17/17 0500 04/17/17 0500 Other Results Laboratory Tests Test 04/16/17 15:04 04/17/17 05:00 White Blood Count 18.8 TH/MM3 13.2 TH/MM3 Red Blood Count 3.86 MIL/MM3 3.21 MIL/MM3 Hemoglobin 10.4 GM/DL 8.9 GM/DL Hematocrit 32.4 % 27.3 % Mean Corpuscular Volume 83.9 FL 85.1 FL Mean Corpuscular Hemoglobin 27.0 PG 27.7 PG Mean Corpuscular Hemoglobin Concent 32.2 % 32.6 % Red Cell Distribution Width 14.9 % 15.2 % Platelet Count 745 TH/MM3 573 TH/MM3 Mean Platelet Volume 9.2 FL 9.3 FL Neutrophils (%) (Auto) 67.3 % 66.8 % Lymphocytes (%) (Auto) 18.4 % 20.7 % Monocytes (%) (Auto) 10.7 % 11.2 % Eosinophils (%) (Auto) 0.6 % 1.0 % Basophils (%) (Auto) 3.0 % 0.3 % Neutrophils # (Auto) 12.6 TH/MM3 8.9 TH/MM3 Lymphocytes # (Auto) 3.5 TH/MM3 2.7 TH/MM3 Monocytes # (Auto) 2.0 TH/MM3 1.5 TH/MM3 Eosinophils # (Auto) 0.1 TH/MM3 0.1 TH/MM3 Basophils # (Auto) 0.6 TH/MM3 0.0 TH/MM3 CBC Comment AUTO DIFF DIFF FINAL Differential Comment AUTO DIFF CONFIRMED Platelet Estimate HIGH Platelet Morphology Comment ENLARGED Urine Collection Type CLEAN CATCH Urine Color YELLOW Urine Turbidity CLEAR Urine pH 5.5 Urine Specific [place] 1.025 Urine Protein 30 mg/dL Urine Glucose (UA) NEG mg/dL Urine Ketones NEG mg/dL Urine Occult Blood NEG Urine Nitrite NEG Urine Bilirubin NEG Urine Leukocyte Esterase NEG Urine WBC 0-2 /hpf Urine Amorphous Sediment FEW Urine Hyaline Casts 3-5 /lpf Urine Mucus FEW /lpf Microscopic Urinalysis Comment CULT NOT INDICATED Urine Collection Time 15:04 Blood Urea Nitrogen 23 MG/DL 16 MG/DL Creatinine 1.30 MG/DL 0.99 MG/DL Random Glucose 112 MG/DL 92 MG/DL Total Protein 8.2 GM/DL Albumin 2.8 GM/DL Calcium Level 9.4 MG/DL 8.3 MG/DL Alkaline Phosphatase 170 U/L Aspartate Amino Transf (AST/SGOT) 33 U/L Alanine Aminotransferase (ALT/SGPT) 33 U/L Total Bilirubin 0.4 MG/DL Sodium Level 132 MEQ/L 137 MEQ/L Potassium Level 4.2 MEQ/L 3.6 MEQ/L Chloride Level 96 MEQ/L 102 MEQ/L Carbon Dioxide Level 26.1 MEQ/L 24.8 MEQ/L Anion Gap 10 MEQ/L 10 MEQ/L Estimat Glomerular Filtration Rate 40 ML/MIN 55 ML/MIN Vitamin B12 Level GREATER THAN 2000 PG/ML Folate GREATER THAN 20.0 NG/ML Objective Remarks Exam: Pleasant female in no distress. Alert. HEENT: Her mouth and tongue and lips are less irritated and red. Neck: No tenderness Heart: RRR without murmurs Lungs: Clear Abdomen: Soft, nontender. Ileostomy in the left side of the abdomen from surgery 03-29-17 where a total colectomy was done Extremities: No edema Neuro: no focal findings A/P Assessment and Plan Assessment: --Stomatitis, glossitis, angular cheilitis likely secondary to oral thrush --Dehydration secondary to poor oral intake because of sore mouth and pain with eating and swallowing --Leukocytosis likely secondary to combination of dehydration and amelia infection --Recent robotic laparoscopic total colectomy with ileoanal pouch ileostomy because of chronic ulcerative colitis and recent tubular adenoma with superficial high grade dysplasia --Asthma --Mild anemia likely because of recent abdominal surgery and chronic disease --Hx of left carotid artery stenosis --Stage 3 CKD --Orthostatic hypotension on admission because of dehydration --Hypertension--her Atenolol has been held and BP good off it currently--will hold it till she sees Dr Ashraf to see if it needs to be resumed --Hx of colon polyps with recent colectomy as mentioned. --Thrombocytosis likely secondary to inflammation --Anxiety/Depression--stable on medication --Osteopenia --GERD Plan: Patient feels like she is much better and could go home so I will discharge her to followup with her PCP in one week. She will hold her Atenolol until then. She has Mycelex Irais lozenges at home that she will continue on using them 5 times a day until they are gone. I called in scripts for the Nystatin/Triamcinolone ointment to apply to her lips which she states helps. I will have her continue on Peridex mouth rinse 2-3 times a day which helps her mouth and that was called into the pharmacy. I have also ordered to the pharmacy to continue on Fluconazole 100mg daily for 7 days. She received a dose last night. She is instructed to do a CBC tomorrow or Saturday. I will have Dr Ashraf's nurse put that order in to the EHR for her. She will resume her other home meds. I did reiterate to her to make sure she rinses her mouth out after using the Breo Elipta since it has a steroid in it. Harlan Luna MD Apr 17, 2017 14:18
== END 2017-04-17 15:33 | disposition home or self-care (01) ==
LOC: PHED 14:21 → PHEDA 16:26 → PH3A 17:38
PROVIDERS: ADMIT Family Medicine; ATTEND Family Medicine
DX: E86.0 Dehydration (principal); B37.0 Candidal stomatitis; R13.10 Dysphagia, unspecified; K51.90 Ulcerative colitis, unspecified, without complications; K21.0 Gastro-esophageal reflux disease with esophagitis; D72.829 Elevated white blood cell count, unspecified; I12.9 Hypertensive chronic kidney disease with stage 1 through stage 4 chronic kidney disease, or unspecified chronic kidney disease; N18.3 Chronic kidney disease, stage 3 (moderate); J45.909 Unspecified asthma, uncomplicated; I70.0 Atherosclerosis of aorta; Z86.010 Personal history of colon polyps; Z90.49 Acquired absence of other specified parts of digestive tract; K14.0 Glossitis
CPT/HCPCS: 80048; 80053; 81001; 82607; 82746; 85025; 96360; 96361; 96372; 99285; G0378; J1650; J7030

== ENCOUNTER → 2017-11-19 | Day surgery (SDC) | payer MEDICARE ==
[~2017-11-19] VITALS: Ht 162.6 cm; Wt 62.4 kg
[~2017-11-19] MED LIST changes: +ACETAMINOPHEN/HYDROcodone 325 MG/5 MG TAB PO PRN; +ASPI-516 CHEW; -ASPI81CH CHEW; -ATEN100T PO; +ATEN25TA PO; +CALCTAB19 PO; +CELE20TA PO; +CHLO.12%30 SWISH-SPIT; +CHLORHEXIDINE GLUCONATE 2 % 1 PACK (2 CLOTHS) TOPICAL PRN; +DO NOT ADM ANY ANTICOAGULANT DRUGS PRN; +FLUC100T2 PO; +LACTATED RINGER'S 1000 ML IV PRN; +LIDOCAINE HCL 1% PF 5 ML SYRINGE OTHER ONE; +METOPROLOL TARTRATE 25 MG TAB PO PRN; +MORPHINE SULFATE 4 MG/ML INJ IV PRN; +NYST1OIN TOPICAL; +POVIDONE IODINE 5% (ANTISEPSIS KIT) 4 APPLICATIONS EACH NARE PRN; +PROPOFOL 200 MG/20 ML AMP IV ONE; +SODIUM CHLORID 0.9% 500 ML IV PRN; +ceFAZolin 2 GM PREMIX 50 ML ONE; +ceFAZolin INJ 1,000 MG VIAL ONE; +metroNIDAZOLE 500 MG INJ 100 ML IV ONE
[2017-11-19 14:41] LABS: BASOPHIL % 0.4 % (0.0-2.0); EOSINOPHIL # 0.1 TH/MM3 (0-0.4); EOSINOPHIL % 1.5 % (0.0-4.0); HEMATOCRIT 33.3 % (35.0-46.0); HEMOGLOBIN 10.9 GM/DL (11.6-15.3); LYMPH % 34.5 % (9.0-44.0); LYMPHOCYTE # 3.1 TH/MM3 (1.0-4.8); MEAN CELL VOLUME 94.9 FL (80.0-100.0); MEAN CORPUSCULAR HEMOGLOBIN 31.1 PG (27.0-34.0); MEAN CORPUSCULAR HGB CONC 32.8 % (32.0-36.0); MEAN PLATELET VOLUME 8.8 FL (7.0-11.0); MONO % 8.7 % (0.0-8.0); MONOCYTE # 0.8 TH/MM3 (0-0.9); NEUT % 54.9 % (16.0-70.0); PLATELET COUNT 273 TH/MM3 (150-450); RED BLOOD COUNT 3.51 MIL/MM3 (4.00-5.30); RED CELL DISTRIBUTION WIDTH 16.7 % (11.6-17.2); WHITE BLOOD COUNT 9.1 TH/MM3 (4.0-11.0)
[2017-11-19 14:59] LABS: BICARBONATE 21.4 MEQ/L (21.0-32.0); CALCIUM 9.1 MG/DL (8.5-10.1); CREATININE 1.91 MG/DL (0.50-1.00)
--- NOTE | 2017-11-19 16:56 | MP ---
cc: Monika Rodriguez MD, Kathleen MD Bernardo, George MD DATE OF OPERATION: 11/19/2017 PREOPERATIVE DIAGNOSIS: Ileoanal pouch leak. POSTOPERATIVE DIAGNOSIS: Ileoanal pouch leak. PROCEDURE PERFORMED: Exam under anesthesia with opening of the fistulous tract. PROCEDURE IN DETAIL: The patient was brought to the operating room, placed in a supine position. After induction of general anesthesia, the patient was placed in Les stirrups and all bony prominences were carefully padded. The skin of the perianal area was prepped and draped in the usual sterile fashion. A digital rectal examination was performed and the area in question was fairly easily visualized. The nasal speculum was then gently placed through the ileoanal pouch opening and gently spread until we had some visualization. The fistula probe was then brought onto the field, placed through the 2-3 mm opening in the posterior pouch and advanced superiorly with some difficulty. The tissue overlying the fistulous tract was then opened widely and curetted out. This was then debrided also using a sponge debridement and the area was wide open at the close of the procedure. The patient tolerated the procedure well. All sponge, needle and instrument counts were correct and the patient was returned to the Postanesthesia Care Unit in stable condition. MD AMBER Santoyo/ , 04:44 PM , 04:55 PM
[2017-11-19 17:40] VITALS: BP 142/73; PULSE 77; RESP 16; TEMP 97.8; O2SAT 99
== END | disposition home or self-care (01) ==
LOC: HSDC 13:01
PROVIDERS: ATTEND Colon & Rectal Surgery
DX: K91.850 Pouchitis (principal); I10 Essential (primary) hypertension; Z01.818 Encounter for other preprocedural examination
CPT/HCPCS: 00902; 46270; 80048; 85025; J0690; J3010; J7120

== ENCOUNTER 2018-03-24 10:55 | Inpatient (IN) ==
[2018-03-24] MEDS ORDERED: Metoprolol Tartrate 25 MG Tablet PO SCH (11:26)
[2018-03-24] MEDS ORDERED: Chlorhexidine Gluconate 2% 1 Pack (2 Cloths) TOPICAL SCH (11:26)
[2018-03-24] MEDS ORDERED: Sugammadex Inj 200 MG/2 ML Vial IV.PUSH ONE (11:40)
[2018-03-24] MEDS ORDERED: Ketamine Inj 50 MG/5 ML Syringe IV.PUSH ONE (11:40)
[2018-03-24] MEDS ORDERED: ceFAZolin 2 GM Premix Inj 2 GM/50 ML PIGGYBACK IV.SIG SCH (12:00)
[2018-03-24] MEDS ORDERED: Sodium Chlor 0.9% Inj 500 ML IV.SIG SCH (12:00)
[2018-03-24] MEDS ORDERED: Lidocaine 0.5%/Epinephrine 1:200,000 Inj 50 ML Vial ONE (12:10)
[2018-03-24] MEDS ORDERED: Ketorolac Inj 30 MG/ML (IVP) Vial IV.PUSH ONE (13:49)
[2018-03-24] MEDS ORDERED: Glycopyrrolate Inj 1 MG/5 ML Syringe IV.PUSH ONE (13:49)
[2018-03-24] MEDS ORDERED: Phenylephrine/NS 1000 MCG/10ML Syringe IV.PUSH ONE (13:49)
[2018-03-24] MEDS ORDERED: Neostigmine Inj 5 MG/5 ML Syringe IV.PUSH ONE (13:49)
[2018-03-24] MEDS ORDERED: Lidocaine PF 1% Inj 5 ML Syringe OTHER ONE (13:49)
[2018-03-24] MEDS ORDERED: *morphine SULFATE 4 MG/ML PERIprocedure ONLY ONE ×2 (15:26→15:49)
[2018-03-24] MEDS ORDERED: fentaNYL Citrate Inj 100 MCG/2 ML Ampul ONE ×2 (15:29)
[2018-03-24] MEDS ORDERED: Morphine Inj 30 MG/30 ML PCA.VIAL PCA PRN (15:44)
[2018-03-24] MEDS ORDERED: Naloxone Inj 0.4 MG/ML Vial IV.PUSH PRN (15:44)
[2018-03-24] MEDS: Dextrose 5%/NaCl 0.9% Inj 1,000 ML IV.SIG SCH ×2 (16:14→21:29)
[2018-03-24 16:21] LABS: Baso % (Auto) 0.1 % (0.0-2.0); Eos % (Auto) 0.3 % (0.0-4.0); Hematocrit 32.2 % (35.0-46.0); Hemoglobin 10.9 gm/dL (11.6-15.3); Lymph # (Auto) 1.3 th/mm3 (1.0-4.8); Lymph % (Auto) 17.4 % (9.0-44.0); Mean Corpuscular HGB Conc 33.8 % (32.0-36.0); Mean Corpuscular Hemoglobin 32.5 pg (27.0-34.0); Mean Corpuscular Volume 96.2 fL (80.0-100.0); Mean Platelet Volume 8.7 fL (7.0-11.0); Mono # (Auto) 0.2 th/mm3 (0.0-0.9); Mono % (Auto) 2.4 % (0.0-8.0); Neut # (Auto) 5.9 th/mm3 (1.8-7.7); Neut % (Auto) 79.8 % (16.0-70.0); Platelet Count 242 th/mm3 (150-450); Red Blood Count 3.34 mil/mm3 (4.00-5.30); Red Cell Distribution Width 14.2 % (11.6-17.2); White Blood Count 7.3 th/mm3 (4.0-11.0)
[2018-03-24 16:41] LABS: Calcium 8.7 mg/dL (8.5-10.1); Carbon Dioxide 20.7 meq/L (21.0-32.0); Potassium 4.4 meq/L (3.5-5.1)
--- NOTE | 2018-03-24 16:54 | MP ---
cc: oMnika Rodriguez MD, Laura MD DATE OF OPERATION: 03/24/2018 POSTOPERATIVE DIAGNOSIS: Chronic ulcerative colitis, status post total proctocolectomy with ileoanal pouch and diverting ileostomy. POSTOPERATIVE DIAGNOSIS: Chronic ulcerative colitis, status post total proctocolectomy with ileoanal pouch and diverting ileostomy. Ventral hernia. PROCEDURES PERFORMED: 1. Resection with reanastomosis of ileostomy. 2. Closure of ventral hernia. SURGEON: Monika Rodriguez MD. ANESTHESIA: General per ET tube. ESTIMATED BLOOD LOSS: Less than 50 mL. INDICATIONS: The patient is a 72-year-old female, who is about a year out from a robotic-assisted total proctocolectomy with ileoanal pouch and diverting loop ileostomy. Postoperatively, the patient had evidence of a fistula posterior to her pouch, and so we waited for that to heal. When it did not heal, we then opened that up and she comes to the operating room today for an ileostomy closure. OPERATIVE FINDINGS: Ileostomy with a small stan-ileostomy hernia. In addition, she was noted to have a ventral hernia just to the right of the midline, not really associated with any of her previous incisions. OPERATIVE COURSE: The patient was brought to the operating room, and placed in the supine position. After induction of general anesthesia, the stoma was sutured closed using 3-0 Vicryl. The skin of the anterior abdominal wall was then prepped and draped in the usual sterile fashion. After a timeout, a transverse lenticular-shaped incision was then made around the stoma, and dissection was carried down to the fascia of the anterior abdominal wall. Using electrocautery, dissection was continued and the patient was noted to have a small parastomal hernia. The bowel was slowly dissected free from the fascial edge circumferentially, using a combination of sharp and electrocautery dissection. Eventually, we had easy mobility of both proximal and distal bowel. A site was then chosen for division of the bowel. The mesentery was opened using electrocautery and a blue load of the LAUREN-55 stapler was placed across the bowel both proximally and distally. These were fired and then removed. The antimesenteric corners of the staple lines were then removed. One limb of the gastrointestinal stapler was placed down each limb of the bowel. This was closed along the antimesenteric border, fired, and removed, thus creating an enteroenterotomy. The resulting enterotomy was closed transversely with a TX-60 stapling device. The anastomosis was palpated and found to be widely patent. A simple stay suture was placed in the distal end of the anastomosis using 3-0 Vicryl. Some small areas of bleeding on the staple line were controlled in a [id number] fashion using 3-0 Vicryl. The mesenteric defect was closed in a running fashion using 3-0 Vicryl as well. The anastomosis was then gently prolapsed back into the peritoneal cavity. On further evaluation, the patient was noted to have a hernia just to the right of the midline, measuring 12 cm in vertical length. The hernia sac was removed using electrocautery, and the hernia was closed in a running fashion using #1 PDS. Seprafilm was then placed over the anterior surface of the bowel and the omentum was brought down to lay over the anterior surface of the bowel as well. The posterior fascia at the ileostomy site was then closed in a running fashion using #1 PDS, and the anterior fascia was closed in a running fashion using #1 PDS. The wound was copiously irrigated with warm normal saline. Subcutaneous tissue was reapproximated in an interrupted fashion using 3-0 Vicryl, and the skin was closed in a running subcuticular fashion using 3-0 Vicryl. Steri-Strips and sterile dressings were then applied, as was a binder. All sponge, needle, and instrument counts were correct, and the patient was returned to the postanesthesia care unit in stable condition. MD AMBER Santoyo/viktoriya , 03:39 PM , 03:49 PM CYRIL
[2018-03-24] MEDS: buPROPion 150 MG 12 HR Tablet PO SCH (17:08)
[2018-03-24] MEDS: Famotidine PF Inj 20 MG/2 ML Vial IV.PUSH SCH (21:29)
[2018-03-25] MEDS: Dextrose 5%/NaCl 0.9% Inj 1,000 ML IV.SIG SCH ×3 (05:40→20:38)
[2018-03-25] MEDS: Famotidine PF Inj 20 MG/2 ML Vial IV.PUSH SCH ×2 (08:16→20:37)
[2018-03-25] MEDS: buPROPion 150 MG 12 HR Tablet PO SCH (08:16)
[2018-03-25] MEDS: Atenolol 25 MG Tablet PO SCH (08:17)
--- NOTE | 2018-03-25 12:40 | P.PN ---
Subjective Interval history: POD#1 s/p resection/reanastomosis ileostomy comfortable Physical Exam Vital signs: Vital Signs 03/24/18 15:16 03/24/18 15:23 03/24/18 15:27 Temperature Pulse Rate 93 H 87 Respiratory Rate 25 H 18 12 Blood Pressure 158/74 H 146/68 H Pulse Oximetry 99 100 03/24/18 15:30 03/24/18 15:45 03/24/18 15:52 Temperature Pulse Rate 87 82 Respiratory Rate 16 16 17 Blood Pressure 156/67 H 128/63 Pulse Oximetry 100 100 03/24/18 16:00 03/24/18 16:15 03/24/18 16:30 Temperature Pulse Rate 84 81 82 Respiratory Rate 16 15 18 Blood Pressure 129/60 123/58 L 119/58 L Pulse Oximetry 94 L 94 L 93 L 03/24/18 17:08 03/24/18 20:00 03/25/18 00:00 Temperature 97.4 F L 97.5 F L Pulse Rate 79 77 Respiratory Rate 18 18 18 Blood Pressure 95/55 L 100/55 L Pulse Oximetry 97 97 03/25/18 07:52 03/25/18 08:00 03/25/18 12:00 Temperature 97.2 F L 97.2 F L 97.7 F Pulse Rate 74 74 77 Respiratory Rate 16 16 17 Blood Pressure 103/55 L 103/55 L 101/53 L Pulse Oximetry 98 98 98 Intake & Output 03/24/18 03/25/18 03/25/18 18:59 06:59 18:59 Intake Total 1999 / 1999 2880 / 2880 1000 / 1000 Output Total 205 / 205 300 / 300 550 / 550 Balance 1795 / 1795 2580 / 2580 450 / 450 Weight 62.8 kg Intake: IV 1150 / 1150 2400 / 2400 1000 / 1000 D5W/Normal Saline Inj 1,000 ML 1999 / 1999 1000 / 1000 @ 125 mls/hr IV.SIG .Q8H RANDI Rx #:[id number] LR 1000 mL Inj 1,000 ML @ 30 1000 / 1000 mls/hr IV.SIG .Q24H RANDI Rx#: [id number] Ancef 2 GM Premix Inj 2 gm In 50 / 50 50 ml @ 100 mls/hr IV.SIG [employer] RANDI Rx#:[id number] Ancef Inj 1,000 MG In NS Inj 200 / 200 100 ML @ 200 mls/hr IV.SIG Q8H RANDI Rx#:[id number] Flagyl 500 MG Inj 100 ML @ 200 100 / 100 200 / 200 mls/hr IV.SIG Q8H RANDI Rx#: [id number] Oral 450 / 450 480 / 480 Anesthesia Amount 400 / 400 Output: Estimated Blood Loss 30 / 30 Urine Amount (Catheter) 175 / 175 300 / 300 550 / 550 Indwelling Urethral Catheter 175 / 175 300 / 300 550 / 550 Other: # Voids 2 # Bowel Movements 1 Weight On Admission 62.8 kg - Routine Abdominal Exam Comments: Abdomen soft, nondistended, tender Dressing c/d/i - Urinary Catheter Management Indwelling Urethral Catheter Cath placed during this visit: yes Reason for continuing: Hourly intake/output Insertion date: 03/24/18 Insertion time: 14:00 Results - Labs CBC & Chem 7: 03/24/18 16:00 03/24/18 16:00 Laboratory Results - last 24 hr 03/24/18 03/24/18 03/24/18 11:30 16:00 16:00 WBC 7.3 RBC 3.34 L Hgb 10.9 L Hct 32.2 L MCV 96.2 MCH 32.5 MCHC 33.8 RDW 14.2 Plt Count 242 MPV 8.7 Neut % (Auto) 79.8 H Lymph % (Auto) 17.4 [place] % (Auto) 2.4 Eos % (Auto) 0.3 Baso % (Auto) 0.1 Neut # (Auto) 5.9 Lymph # (Auto) 1.3 [place] # (Auto) 0.2 Eos # (Auto) 0.0 Baso # (Auto) 0.0 WBC Differential . Differential Comment Auto diff final Sodium 134 L Potassium 4.4 Chloride 102 Carbon Dioxide 20.7 L Anion Gap 11 BUN 27 H Creatinine 2.32 H Estimated GFR 21 L Random Glucose 104 Calcium 8.7 Blood Type Recheck Required Antibody Screen Negative Assessment and Plan - Assessment (1) Ulcerative colitis Code(s): K51.90 - Ulcerative colitis, unspecified, without complications Status: Acute Plan: If tolerates diet, can go home this afternoon
[2018-03-25] MEDS: Heparin - SQ 10,000 UNITS/ML Vial SQ SCH (14:41)
[2018-03-25 15:22] LABS: Baso % (Auto) 0.1 % (0.0-2.0); Hematocrit 28.4 % (35.0-46.0); Hemoglobin 9.5 gm/dL (11.6-15.3); Lymph % (Auto) 13.3 % (9.0-44.0); Mean Corpuscular HGB Conc 33.6 % (32.0-36.0); Mean Corpuscular Hemoglobin 32.5 pg (27.0-34.0); Mean Corpuscular Volume 96.9 fL (80.0-100.0); Mean Platelet Volume 8.8 fL (7.0-11.0); Mono # (Auto) 1.1 th/mm3 (0.0-0.9); Mono % (Auto) 7.6 % (0.0-8.0); Neut # (Auto) 11.7 th/mm3 (1.8-7.7); Platelet Count 224 th/mm3 (150-450); Red Blood Count 2.93 mil/mm3 (4.00-5.30); Red Cell Distribution Width 14.1 % (11.6-17.2); White Blood Count 14.9 th/mm3 (4.0-11.0)
[2018-03-25 15:41] LABS: Calcium 7.4 mg/dL (8.5-10.1); Carbon Dioxide 20.1 meq/L (21.0-32.0); Potassium 3.7 meq/L (3.5-5.1)
[2018-03-25 15:59] LABS: Total Protein 6.6 g/dL (6.4-8.2)
[2018-03-26 02:23] VITALS: TEMP 97.7
[2018-03-26] MEDS: Dextrose 5%/NaCl 0.9% Inj 1,000 ML IV.SIG SCH (03:45)
[2018-03-26] MEDS: Heparin - SQ 10,000 UNITS/ML Vial SQ SCH (03:45)
[2018-03-26 07:58] LABS: Baso % (Auto) 0.2 % (0.0-2.0); Eos # (Auto) 0.1 th/mm3 (0.0-0.4); Eos % (Auto) 0.9 % (0.0-4.0); Hematocrit 28.1 % (35.0-46.0); Hemoglobin 9.3 gm/dL (11.6-15.3); Lymph # (Auto) 2.1 th/mm3 (1.0-4.8); Lymph % (Auto) 23.3 % (9.0-44.0); Mean Corpuscular HGB Conc 33.1 % (32.0-36.0); Mean Corpuscular Volume 99.6 fL (80.0-100.0); Mean Platelet Volume 8.7 fL (7.0-11.0); Mono # (Auto) 0.7 th/mm3 (0.0-0.9); Mono % (Auto) 8.2 % (0.0-8.0); Neut % (Auto) 67.4 % (16.0-70.0); Platelet Count 195 th/mm3 (150-450); Red Blood Count 2.83 mil/mm3 (4.00-5.30); Red Cell Distribution Width 14.5 % (11.6-17.2); White Blood Count 8.9 th/mm3 (4.0-11.0)
[2018-03-26 08:10] LABS: Calcium 7.2 mg/dL (8.5-10.1); Carbon Dioxide 20.9 meq/L (21.0-32.0); Potassium 3.6 meq/L (3.5-5.1)
[2018-03-26] MEDS: Famotidine PF Inj 20 MG/2 ML Vial IV.PUSH SCH (08:28)
[2018-03-26] MEDS: buPROPion 150 MG 12 HR Tablet PO SCH (08:28)
[2018-03-26] MEDS: Atenolol 25 MG Tablet PO SCH (08:28)
[2018-03-26 08:45] LABS: Total Protein 6.1 g/dL (6.4-8.2)
[2018-03-26 09:00] VITALS: BP 147/83; PULSE 84; RESP 17; O2SAT 94
== END 2018-03-26 10:43 | disposition home or self-care (01) ==
LOC: HSDI 10:55 → N07 16:46
PROVIDERS: ADMIT Colon & Rectal Surgery; ATTEND Colon & Rectal Surgery